=== PATIENT | male | born 1990 | race Caucasian/White ===

== ENCOUNTER 2017-12-17 12:22 | Emergency (ER) | payer OTHER ==
[~2017-12-17] VITALS: Ht 175.3 cm; Wt 72.2 kg
[~2017-12-17 12:22] MED LIST: TRIAMCINOLONE A15 G4 TOP; VITAMIN D250000 UNIT PO; ZOLOFT25 MG PO
[2017-12-17] MEDS ORDERED: COMBIGAN EYE DRO5 ML OU (12:57)
[2017-12-17] MEDS ORDERED: AMOXICILLI250 MG/5 M PO (16:25)
[2017-12-17] MEDS ORDERED: IBUPROFEN600 MG PO (16:25)
== END 2017-12-17 16:42 | disposition home or self-care (01) ==
LOC: ED 12:22
DX: K08.89 Other specified disorders of teeth and supporting structures (principal)
CPT/HCPCS: 70486; 99284